=== PATIENT | female | born 1945 | race Caucasian/White ===

== ENCOUNTER → 2021-08-26 | Outpatient (CLI) | payer BC, MEDICARE ==
--- NOTE | 2021-08-26 13:48 | RAD ---
INDICATION: Reason: LT KNEE PAIN , S/P TWISTING INJURY / Spl. Instructions: / History: COMPARISON: None. TECHNIQUE: Grayscale, color and doppler ultrasound images were obtained of the left lower extremity v enous vasculature. LEFT: No thrombus identified in the common femoral vein, femoral vein, popliteal vein or visualized calf ve ins. IMPRESSION: * No thrombus identified in deep venous system of the left lower extremity. Electronically signed by: Osiel Duarte MD (08/26/2021 1:46 PM) [id number]
--- NOTE | 2021-08-27 00:52 | RAD ---
Three-view left knee dated 08/26/2021. No comparison available. CLINICAL INDICATION: Pain. FINDINGS: 3 views left knee show normal bony alignment. No displaced fracture. No periostitis or bone destructi on. No acute osseous or articular abnormality. No apparent joint effusion or loose body. Mild tricomp artmental hypertrophic change. IMPRESSION: No acute radiographic abnormality. Electronically signed by: Kong Shannon MD (08/27/2021 12:49 AM) SHAREE
== END ==
LOC: US 13:15
PROVIDERS: ATTEND Specialist
DX: M25.562 Pain in left knee (principal); Z87.828 Personal history of other (healed) physical injury and trauma
CPT/HCPCS: 73562; 93971